=== PATIENT | male | born 1980 | race Caucasian/White ===

== ENCOUNTER 2019-03-16 20:24 | Emergency (ER) | payer MEDICARE ==
[~2019-03-16] VITALS: Ht 185.4 cm; Wt 100.2 kg
[2019-03-16 20:26] VITALS: BP 114/75
--- NOTE | 2019-03-16 20:30 | NUR ---
NO ANSWER WHEN CALLED FOR TRIAGE
== END 2019-03-16 23:00 | disposition home or self-care (01) ==
LOC: ED 22:30
DX: R07.89 Other chest pain (principal); F15.129 Other stimulant abuse with intoxication, unspecified; E11.9 Type 2 diabetes mellitus without complications; Z72.9 Problem related to lifestyle, unspecified
CPT/HCPCS: 93005; 99283

== ENCOUNTER 2019-03-17 07:27 | Emergency (ER) | payer MEDICARE ==
[~2019-03-17] VITALS: Ht 180.3 cm; Wt 99.0 kg
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
[2019-03-17 08:16] VITALS: BP 134/67
--- NOTE | 2019-03-17 08:19 | NUR ---
PT REFUSED ALL MONITORS AT THIS TIME. PT STATES" I NEED TO USE PHONE AND I DON'T NEED ANYTHING."
[2019-03-17] MEDS ORDERED: ZIPRASIDONE 20 MG INJ IM ONE ×2 (08:30→08:41)
[2019-03-17 08:37] LABS: BASOPHILS # (AUTO) 0.05 x10^3/uL (0-0.1); BASOPHILS % (AUTO) 1 % (0-1); EOSINOPHILS # (AUTO) 0.09 x10^3/uL (0-0.4); EOSINOPHILS % (AUTO) 2 % (1-7); LYMPHOCYTES # (AUTO) 0.94 x10^3/uL (1-3.4); LYMPHOCYTES % (AUTO) 19 % (22-44); MD NO; MEAN CORPUSCULAR HEMOGLOBIN 32.5 pg (27.5-34.5); MEAN CORPUSCULAR HGB CONC 33.7 g/dL (33.2-36.2); MEAN CORPUSCULAR VOLUME 96.5 fL (81-97); MONOCYTES # (AUTO) 0.47 x10^3/uL (0.2-0.8); MONOCYTES % (AUTO) 9 % (2-9); NEUTROPHILS # (AUTO) 3.52 x10^3/uL (1.8-6.8); NEUTROPHILS % (AUTO) 70 % (42-75); PLATELET COUNT 159 x10^3/uL (130-400); RED BLOOD COUNT 5.03 x10^6/uL (4.38-5.82); RED CELL DISTRIBUTION WIDTH 13.9 % (9.4-14.8)
[2019-03-17 08:48] LABS: ALANINE AMINOTRANSFERASE 29 U/L (12-78); ALBUMIN 4.3 g/dL (3.4-5.0); ANION GAP 8 mmol/L (5-15); CALCIUM 8.9 mg/dL (8.5-10.1); CHLORIDE 106 mmol/L (98-107); CREATININE 1.13 mg/dL (0.7-1.3)
--- NOTE | 2019-03-17 08:48 | NUR ---
PT REFUSED BASSAM. PT STATES"I'M FINE. I DON'T NEED ANY."
[2019-03-17 08:50] LABS: ALKALINE PHOSPHATASE 66 U/L (45-117); BILIRUBIN,TOTAL 0.9 mg/dL (0.2-1.0); TOTAL PROTEIN 7.8 g/dL (6.4-8.2)
--- NOTE | 2019-03-17 08:52 | NUR ---
URINAL AT BEDSIDE. PT AWARES OF URINE SAMPLE.
[2019-03-17 08:53] LABS: SALICYLATE LEVEL < 1.7 mg/dL (2.8-20.0)
--- NOTE | 2019-03-17 09:54 | NUR ---
PT RESTING IN [facility]. RESPS EVEN AND UNLABORED. CALL LIGHT WITHIN REACH.
--- NOTE | 2019-03-17 10:08 | NUR ---
SITTER MONITORING FROM [facility] FOR SAFETY AT THIS TIME.
--- NOTE | 2019-03-17 10:42 | NUR ---
PSYCH FIGURINE MAKER AT BEDSIDE AT THIS TIME.
[2019-03-17] MEDS ORDERED: LORazepam 2 MG/ML, 1ML IM PRN (11:00)
[2019-03-17] MEDS ORDERED: HALOPERIDOL 5 MG/ML IM PRN (11:00)
[2019-03-17] MEDS ORDERED: DIPHENHYDRAMINE 25 MG CAPSULE PO PRN (11:00)
[2019-03-17] MEDS ORDERED: HALOPERIDOL 5 MG TABLET PO PRN (11:00)
[2019-03-17] MEDS ORDERED: LORazepam 1MG TABLET PO PRN (11:00)
[2019-03-17] MEDS ORDERED: DIPHENHYDRAMINE 50 MG/ML, 1ML IM PRN (11:00)
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
[2019-03-17] MEDS ORDERED: LORazepam 2 MG/ML, 1ML ONE (11:39)
[2019-03-17] MEDS ORDERED: HALOPERIDOL 5 MG/ML ONE (11:39)
--- NOTE | 2019-03-17 11:48 | NUR ---
PT AMB TO BR AND BACK TO ROOM WITH STEADY GAIT. URINE SAMPLE COLLECTED. UA SENT.
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
--- NOTE | 2019-03-17 11:48 | NUR ---
PT AGITATED AND YELLING AT STAFF. RN ATTEMPTED TO DEESCALATE PT. BUT PT CONTINUES TO YELL AT STAFF. SECURITY CALLED TO ASSIST, THEN ATIVAN/HALDOL IM GIVEN PER LUMP ROLLER ORDER. PT TOLERATED WELL.
[2019-03-17 12:08] LABS: AMPHETAMINE SCREEN, URINE Positive (Negative); BARBITURATE SCREEN, URINE Negative (Negative); BENZODIAZEPINE SCREEN, URINE Negative (Negative); CANNABINOID SCREEN, URINE Negative (Negative); COCAINE SCREEN, URINE Negative (Negative); METHADONE SCREEN, URINE Negative (Negative); OPIATE SCREEN, URINE Negative (Negative)
--- NOTE | 2019-03-17 12:21 | NUR ---
REPORT GIVEN TO JOSS KNUTSON.
--- NOTE | 2019-03-17 12:24 | NUR ---
THROUGHPUT: PACKET FAXED TO [facility].
--- NOTE | 2019-03-17 13:20 | NUR ---
pt refuses cardiac monitoring. removes lines
--- NOTE | 2019-03-17 13:22 | NUR ---
REC BS REPORT FROM JOSS Napier PT SLEEEPING AT THIS TIME SITTER IN THE [place] WATCHING THE PT
--- NOTE | 2019-03-17 14:19 | NUR ---
LEGAL HOLD FAXED TO [facility] AGAIN. RN TO GIVE ACCEPTING MD AFTER RECIEVING MD ACCEPTS. PT TO TRANSFER TO [facility]
--- NOTE | 2019-03-17 14:43 | NUR ---
THROUGHPUT: REPORT GIVEN TO SHYAM ([facility]), WILL CALL BACK WITH ACCEPTING MD.
--- NOTE | 2019-03-17 14:57 | NUR ---
THROUGHPUT: PER ISHMAEL ([facility]), TRANSPORT SCHEDULED FOR 0 TODAY. PRIMARY & ELECTRONIC HEAT SEAL OPERATOR AWARE.
== END 2019-03-17 15:48 | disposition home or self-care (01) ==
LOC: ED 08:13
DX: F22 Delusional disorders (principal); F23 Brief psychotic disorder; Z00.00 Encounter for general adult medical examination without abnormal findings
CPT/HCPCS: 36415; 80053; 80307; 85025; 93005; 96372; 99285; J1630; J2060